=== PATIENT | male | born 1985 | race African-American/Black ===

== ENCOUNTER 2022-09-30 07:22 | Emergency (ER) | payer OTHER ==
[~2022-09-30] VITALS: Ht 172.7 cm; Wt 98.9 kg
[~2022-09-30 07:22] MED LIST: N
== END 2022-09-30 10:33 | disposition home or self-care (01) ==
LOC: ER 07:22
DX: J03.90 Acute tonsillitis, unspecified (principal); Z20.822 Contact with and (suspected) exposure to COVID-19; Z88.6 Allergy status to analgesic agent; Z88.8 Allergy status to other drugs, medicaments and biological substances